=== PATIENT | female | born 1985 ===

== ENCOUNTER 2016-10-21 09:14 | Emergency (ER) | payer MEDICAID, OTHER ==
[2016-10-21 09:14] VITALS: BMI 28.8
[2016-10-21 09:19] VITALS: BP 118/80; RESP 18; TEMP 97.5
[2016-10-21 09:58] VITALS: PULSE 78; O2SAT 98
--- NOTE | 2016-10-21 12:14 | C.PDOC ---
History Of Present Illness The patient, a 31 y/o female, presents to the ED for evaluation of a headache which occurred yesterday. Patient also states she has mild tenderness under her left eye. Patient did not take any medication for her symptoms yesterday. Patient denies headache currently in the ED as well as fever, chills, vision changes, injury/trauma. Chief Complaint (Nursing): Headache History Per: Patient History/Exam Limitations: no limitations Onset/Duration Of Symptoms: Hrs Current Symptoms Are (Timing): Gone Quality: Aching Preceeding Symptoms: denies: Visual Disturbances Associated Symptoms: denies: Photophobia, Blurred Vision Additional History Per: Patient Past Medical History Reviewed: Historical Data, Nursing Documentation, Vital Signs Vital Signs: Last Vital Signs Temp 97.5 F L 10/21/16 09:18 Pulse 78 10/21/16 09:58 Resp 18 10/21/16 09:58 BP 118/80 10/21/16 09:18 Pulse Ox 98 10/21/16 12:16 - Medical History PMH: HTN (Preeclampsia) Surgical History: No Surg Hx ( ) Family History: States: Unknown Family Hx - Social History Hx Tobacco Use: No Hx Alcohol Use: Yes Hx Substance Use: No - Immunization History Hx Tetanus Toxoid Vaccination: No Hx Influenza Vaccination: No Hx Pneumococcal Vaccination: No Review Of Systems Except As Marked, All Systems Reviewed And Found Negative. Constitutional: Negative for: Fever, Chills Eyes: Negative for: Vision Change Neurological: Positive for: Headache Physical Exam - Physical Exam Appears: Non-toxic, No Acute Distress Skin: Normal Color, Warm, Dry Head: Atraumatic, Normacephalic Eye(s): bilateral: Normal Inspection, PERRL, EOMI Oral Mucosa: Moist Neck: Normal ROM, Supple Chest: Symmetrical, No Deformity, No Tenderness Cardiovascular: Rhythm Regular, No Murmur Respiratory: Normal Breath Sounds, No Rales, No Rhonchi, No Wheezing Back: Normal Inspection Extremity: Normal ROM, Capillary Refill (less than 2 seconds ) Neurological/Psych: Oriented x3, Normal Speech, Normal Cognition Gait: Steady ED Course And Treatment O2 Sat by Pulse Oximetry: 98 (on RA) Pulse Ox Interpretation: Normal Medical Decision Making Medical Decision Making: Progress Notes: On reassessment, patient is resting comfortably, showing no signs of distress, and is stable for duscharge. Patient is advised to follow up with her PMD within a timely manner for further evaluation. Disposition - Disposition Referrals: [facility] [Outside] [facility] [Outside] Disposition: HOME/ ROUTINE Disposition Time: 09:50 Condition: GOOD Additional Instructions: Thank you for letting us take care of you today. Your provider was Dr. Alfredo. You were treated for sinus swelling. The emergency medical care you received today was directed at your acute symptoms. If you were prescribed any medication, please fill it and take as directed. It may take several days for your symptoms to resolve. Return to the Emergency Department if your symptoms worsen, do not improve, or if you have any other problems. Please contact your doctor or call one of the physicians/clinics you have been referred to that are listed on the Patient Visit Information form that is included in your discharge packet. Bring any paperwork you were given at discharge with you along with any medications you are taking to your follow up visit. Our treatment cannot replace ongoing medical care by a primary care provider (PCP) outside of the emergency department. Thank you for allowing the [facility] team to be part of your care today. Follow up in the clinic in 3-5 days to be re-evaluated. Prescriptions: Cetirizine HCl/Pseudoephedrine [Zyrtec-D Tablet] 1 each PO DAILY #10 tab.er.[id number] Instructions: Sinusitis (ED) Forms: Gen Discharge Inst Irish, Work Excuse Print Language: ICELANDIC - Clinical Impression Clinical Impression: Sinusitis - Scribe Statement The provider has reviewed the documentation as recorded by the Scribe (Patience Traore) Provider Attestation: All medical record entries made by the Kellyibe were at my direction and personally dictated by me. I have reviewed the chart and agree that the record accurately reflects my personal performance of the history, physical exam, medical decision making, and the department course for this patient. I have also personally directed, reviewed, and agree with the discharge instructions and disposition.
== END 2016-10-21 09:59 | disposition home or self-care (01) ==
LOC: C.ER 09:14
DX: J32.9 Chronic sinusitis, unspecified (principal)

== ENCOUNTER 2016-11-18 09:16 | Emergency (ER) | payer MEDICAID, OTHER ==
[2016-11-18 09:16] VITALS: BMI 28.8
[2016-11-18 09:19] VITALS: RESP 18; TEMP 97.8; O2SAT 100
[2016-11-18] MEDS ORDERED: Sodium Chloride 0.9% 1,000 ML IV ONE (09:46)
--- NOTE | 2016-11-18 09:50 | C.PDOC ---
History Of Present Illness 31-year-old female presents to the emergency department with complaints of six episodes of non-bloody diarrhea with white mucus since last night. Patient notes associated abdominal pain that is primarily epigastric. She denies fever , vomiting, vaginal bleeding, hematuria/dysuria, sick contacts, unusual food intake, recent antibiotic use. Time Seen by Provider: 11/18/16 09:24 Chief Complaint (Nursing): Abdominal Pain History Per: Patient History/Exam Limitations: no limitations Onset/Duration Of Symptoms: Days Current Symptoms Are (Timing): Still Present Severity: Mild Location Of Pain/Discomfort: Epigastric Past Medical History Reviewed: Historical Data, Nursing Documentation, Vital Signs Vital Signs: Last Vital Signs Temp 97.8 F 11/18/16 09:19 Pulse 64 11/18/16 11:43 Resp 18 11/18/16 11:43 BP 104/70 11/18/16 11:43 Pulse Ox 100 11/18/16 18:04 - Medical History PMH: HTN (Preeclampsia) Family History: States: No Known Family Hx - Social History Hx Tobacco Use: No Hx Alcohol Use: Yes Hx Substance Use: No - Immunization History Hx Tetanus Toxoid Vaccination: No Hx Influenza Vaccination: No Hx Pneumococcal Vaccination: No Review Of Systems Except As Marked, All Systems Reviewed And Found Negative. Constitutional: Negative for: Fever Cardiovascular: Negative for: Chest Pain, Palpitations Respiratory: Negative for: Cough, Shortness of Breath Gastrointestinal: Positive for: Nausea, Abdominal Pain, Diarrhea. Negative for : Vomiting Genitourinary: Negative for: Dysuria, Hematuria, Vaginal Discharge, Vaginal Bleeding Musculoskeletal: Negative for: Back Pain Skin: Negative for: Rash Neurological: Negative for: Headache, Dizziness Physical Exam - Physical Exam Appears: Well, Non-toxic, No Acute Distress Skin: Warm, Dry, No Rash Eye(s): bilateral: Normal Inspection Oral Mucosa: Moist Cardiovascular: Rhythm Regular Respiratory: Normal Breath Sounds, No Rales, No Rhonchi, No Wheezing Gastrointestinal/Abdominal: Bowel Sounds, Soft, Tenderness (Mild, epigastric TTP ), No Guarding, No Rebound, Other ((-)[place], (-)[place] ) Back: Normal Inspection, No CVA Tenderness Extremity: Normal ROM Neurological/Psych: Oriented x3 ED Course And Treatment - Laboratory Results Result Diagrams: 11/18/16 10:06 05/16/17 10:06 O2 Sat by Pulse Oximetry: 100 (RA) Pulse Ox Interpretation: Normal Progress Note: Blood work, UA/HCG ordered and reviewed. Patient given IV NS bolus, IV pepcid, IV zofran. Reevaluation Time: 11:35 Reassessment Condition: Improved (On reassessment, patient is resting comforrtably and states she is feeling better. On exam, abdomnen is soft and nontender. Blood work, UA, Upreg unremarkable. Symptoms likely due to viral gastroenteritis. Patient given Rxs for Bentyl and Zofran, and was instructed to drink plenty of clear fluids and follow up with PMD/clinic in 1-2 days. She understands she should return to ED if symptoms worsen.) Disposition Counseled Patient/Family Regarding: Studies Performed, Diagnosis, Need For Followup, Rx Given - Disposition Referrals: [facility] [Outside] Disposition: HOME/ ROUTINE Disposition Time: 11:35 Condition: STABLE Additional Instructions: FOLLOW UP WITH YOUR DOCTOR/CLINIC IN 1-2 DAYS DRINK PLENTY OF CLEAR FLUIDS USE MEDICATIONS NEEDED RETURN TO EMERGENCY ROOM IF SYMPTOMS WORSEN SEGUIMIENTO CON NGO DOCTOR / CLNICA EN 1-2 ALFONSO BEBIDA DE FLUIDOS SUPRIYA USE LOS MEDICAMENTOS QUE VIDA NECESARIOS DEVUELVA A LA JORGE LUIS DE EMERGENCIA SI LOS SNTOMAS EMPEORARAN Prescriptions: Dicyclomine [Bentyl] 20 mg PO Q6 PRN #12 tab PRN Reason: ABDOMINAL CRAMPING Ondansetron [Zofran Odt] 4 mg PO Q8 PRN #10 odt PRN Reason: Nausea/Vomiting Instructions: Acute Diarrhea (ED) Forms: Work Excuse Print Language: COLOMBIAN - POA Present On Arrival: None - Clinical Impression Clinical Impression: Nausea, Diarrhea - Scribe Statement The provider has reviewed the documentation as recorded by the Scribrohini Brower All medical record entries made by the Scribe were at my direction and personally dictated by me. I have reviewed the chart and agree that the record accurately reflects my personal performance of the history, physical exam, medical decision making, and the department course for this patient. I have also personally directed, reviewed, and agree with the discharge instructions and disposition.
[2016-11-18] MEDS ORDERED: Sodium Chloride 0.9% 1,000 ML ONE (10:06)
[2016-11-18 10:21] LABS: BASO % 0.5 % (0.0-2.0); EOS # 0.1 K/uL (0.0-0.7); EOS % 2.2 % (0.0-4.0); HEMATOCRIT 38.4 % (34.0-47.0); LYMPH # 1.3 K/uL (1.0-4.3); LYMPH % 31.9 % (20.0-40.0); MEAN CELL VOLUME 92.6 fL (81.0-99.0); MEAN CORPUSCULAR HEMOGLOBIN 30.2 pg (27.0-31.0); MEAN CORPUSCULAR HGB CONC 32.6 g/dL (33.0-37.0); MONO # 0.3 K/uL (0.0-0.8); MONO % 8.5 % (0.0-10.0); RED CELL DISTRIBUTION WIDTH 13.1 % (11.5-14.5)
[2016-11-18 10:24] LABS: CHLORIDE 99 mmol/L (98-107); POTASSIUM 3.9 mmol/L (3.6-5.2); SODIUM 136 mmol/L (132-148)
[2016-11-18 10:26] LABS: ALB/GLOB RATIO 1.6 (1.0-2.1); ALKALINE PHOSPHATASE 67 U/L (38-126); AST/SGOT 22 U/L (14-36); BILIRUBIN,TOTAL 0.5 mg/dL (0.2-1.3); CARBON DIOXIDE 29 mmol/L (22-30); GFR AFRICAN-AMERICAN > 60; TOTAL PROTEIN 6.8 g/dL (6.3-8.3)
[2016-11-18 10:27] LABS: ALT/SGPT 34 U/L (9-52); BLOOD UREA NITROGEN 13 mg/dL (7-17); CALCIUM 8.4 mg/dl (8.6-10.4); GLUCOSE,RANDOM 88 mg/dL (65-105)
[2016-11-18 10:36] LABS: RBC URINE 1 /hpf (0-3); URINE BILIRUBIN NEGATIVE (NEGATIVE); URINE BLOOD NEGATIVE (NEGATIVE); URINE COLOR Yellow (YELLOW); URINE GLUCOSE (UA) NORMAL (Normal); URINE KETONE NEGATIVE (NEGATIVE); URINE LEUKOCYTE ESTERASE NEG Leu/uL (Negative); URINE PROTEIN NEGATIVE (NEGATIVE); URINE UROBILINOGEN NORMAL mg/dL (0.2-1.0); WBC URINE < 1 /hpf (0-5)
--- NOTE | 2016-11-18 11:43 | RAD ---
PROCEDURE: Radiographs of the chest and abdomen (obstructive series) HISTORY: n/v, abd distension COMPARISON: CT of the abdomen and pelvis performed 03/13/16 FINDINGS: CHEST: The cardiomediastinal silhouette appears within normal limits. No focal consolidation, significant pleural effusion, or definite pneumothorax identified.Please note that chest x-ray has limited sensitivity for the detection of pulmonary masses. ABDOMEN AND PELVIS: Nonobstructive bowel gas pattern. No definite free air. Moderate constipation. No acute osseous abnormality is detected. IMPRESSION: Moderate constipation.
[2016-11-18 11:44] VITALS: BP 104/70; PULSE 64
== END 2016-11-18 11:45 | disposition home or self-care (01) ==
LOC: C.ER 09:16
DX: R19.7 Diarrhea, unspecified (principal); R11.0 Nausea
CPT/HCPCS: 74022; 80053; 81001; 83690; 84703; 85025; 96361; 96374; 96375; 99284; J2405; J7040

== ENCOUNTER 2017-01-13 11:18 | Emergency (ER) | payer MEDICAID ==
[2017-01-13 11:19] VITALS: BMI 28.8
[2017-01-13 11:23] VITALS: RESP 16; TEMP 97.7; O2SAT 100
--- NOTE | 2017-01-13 12:29 | C.PDOC ---
History Of Present Illness 31 yr old with PMHx of hypotension, presents to the ER stating today she felt like her pressure was low and noticed her lips were pale and had body aches. Patient denies fever, chest pain, SOB, nausea, vomiting, headache, vision changes, weakness or numbness. Time Seen by Provider: 01/13/17 11:48 Chief Complaint (Nursing): Medical Clearance History Per: Patient History/Exam Limitations: no limitations Onset/Duration Of Symptoms: Sudden Onset (Today) Current Symptoms Are (Timing): Still Present Past Medical History Reviewed: Historical Data, Nursing Documentation, Vital Signs Vital Signs: Last Vital Signs Temp 97.7 F 01/13/17 12:53 Pulse 92 H 01/13/17 12:53 Resp 16 01/13/17 12:53 BP 116/78 01/13/17 12:53 Pulse Ox 100 01/13/17 12:53 - Medical History PMH: HTN (Preeclampsia) Family History: States: No Known Family Hx - Social History Hx Tobacco Use: No Hx Alcohol Use: Yes Hx Substance Use: No - Immunization History Hx Tetanus Toxoid Vaccination: No Hx Influenza Vaccination: No Hx Pneumococcal Vaccination: No Review Of Systems Except As Marked, All Systems Reviewed And Found Negative. Constitutional: Positive for: Other ((+) Low pressure. Body aches. Pale lips. ) . Negative for: Fever Cardiovascular: Negative for: Chest Pain Respiratory: Negative for: Shortness of Breath Gastrointestinal: Negative for: Nausea, Vomiting Neurological: Negative for: Weakness, Numbness, Headache Physical Exam - Physical Exam Appears: Non-toxic, No Acute Distress Skin: Warm, Dry, No Rash Head: Atraumatic, Normacephalic Eye(s): bilateral: Normal Inspection, PERRL, EOMI Oral Mucosa: Moist Throat: No Erythema, No Exudate Neck: Normal ROM, Supple Chest: Symmetrical, No Tenderness Cardiovascular: Rhythm Regular, No Friction Rub, No Murmur Respiratory: Normal Breath Sounds, No Rales, No Rhonchi, No Stridor, No Wheezing Gastrointestinal/Abdominal: Normal Exam, Soft, No Tenderness, No Guarding, No Rebound Back: Normal Inspection, No CVA Tenderness Extremity: Normal ROM, No Tenderness, No Swelling Pulses: Left Radial: Normal, Right Radial: Normal, Left Dorsalis Pedis: Normal, Right Dorsalis Pedis: Normal Neurological/Psych: Oriented x3, Normal Speech, Normal Cranial Nerves, Normal Motor, Normal Sensation Gait: Steady ED Course And Treatment O2 Sat by Pulse Oximetry: 100 (on RA) Pulse Ox Interpretation: Normal Medical Decision Making Medical Decision Making: PLAN: * HCG * Urinalysis On re-exam, the patient reports improvement of symptoms. Ambulatory in the ED with steady gait. Abdomen is soft, non-tender and tolerating PO well. Lungs are CTA and heart is RRR. Disposition - Disposition Referrals: [facility] [Outside] Disposition: HOME/ ROUTINE Disposition Time: 12:49 Condition: GOOD Additional Instructions: Follow up with the medical doctor within 1-2 days. Return if worsened. 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 - Scribe Statement The provider has reviewed the documentation as recorded by the Scribe Pearl Escobar All medical record entries made by the Scribe were at my direction and personally dictated by me. I have reviewed the chart and agree that the record accurately reflects my personal performance of the history, physical exam, medical decision making, and the department course for this patient. I have also personally directed, reviewed, and agree with the discharge instructions and disposition.
[2017-01-13 12:36] LABS: HCG,QUALITATIVE URINE POSITIVE (NEGATIVE)
[2017-01-13 12:43] LABS: SQUAMOUS EPITHIAL 1 /hpf (0-5); URINE BILIRUBIN NEGATIVE (NEGATIVE); URINE BLOOD NEGATIVE (NEGATIVE); URINE CLARITY Clear (Clear); URINE COLOR Yellow (YELLOW); URINE GLUCOSE (UA) NORMAL (Normal); URINE LEUKOCYTE ESTERASE NEG Leu/uL (Negative); URINE NITRATE NEGATIVE (NEGATIVE); URINE PROTEIN NEGATIVE (NEGATIVE); URINE UROBILINOGEN NORMAL mg/dL (0.2-1.0)
[2017-01-13 12:54] VITALS: BP 116/78; PULSE 92
== END 2017-01-13 12:59 | disposition home or self-care (01) ==
LOC: C.ER 11:18
DX: O26.891 Other specified pregnancy related conditions, first trimester (principal); R42 Dizziness and giddiness; Z3A.00 Weeks of gestation of pregnancy not specified

== ENCOUNTER 2017-01-14 09:23 | Emergency (ER) | payer MEDICAID ==
[2017-01-14 09:27] VITALS: BMI 27.4
[2017-01-14 09:28] VITALS: RESP 18; O2SAT 100
[2017-01-14 10:09] LABS: BASO % 0.4 % (0.0-2.0); EOS # 0.1 K/uL (0.0-0.7); EOS % 1.2 % (0.0-4.0); HEMOGLOBIN 13.5 g/dL (11.0-16.0); LYMPH # 1.4 K/uL (1.0-4.3); MEAN CELL VOLUME 91.6 fL (81.0-99.0); MEAN CORPUSCULAR HGB CONC 32.8 g/dL (33.0-37.0); MONO # 0.4 K/uL (0.0-0.8); MONO % 7.4 % (0.0-10.0); NEUT # 3.8 K/uL (1.8-7.0); RBC 4.51 Mil/uL (3.80-5.20); RED CELL DISTRIBUTION WIDTH 12.8 % (11.5-14.5); WHITE BLOOD COUNT 5.7 K/uL (4.8-10.8)
--- NOTE | 2017-01-14 10:13 | C.PDOC ---
History Of Present Illness 31 y/o female presents to ED with complaints of pelvic pain with radiation to back. Patient was seen at ED yesterday for similar symptoms and was told she was . Patient states after being discharged yesterday symptoms continued and went to [facility] for evaluation. Patient had an ultrasound and blood work at [facility] and was discharged home. Patient reports symptoms have not improved since then and patient decided to come back to ED for evaluation. Patient denies fever, chills, n/v/d or any other complaints at this time. LMP 12/2016 Time Seen by Provider: 01/14/17 09:32 Chief Complaint (Nursing): Back Pain History Per: Patient History/Exam Limitations: no limitations Onset/Duration Of Symptoms: Days Quality Of Discomfort: Cramping Previous Symptoms: Back Pain Past Medical History Reviewed: Historical Data, Nursing Documentation, Vital Signs Vital Signs: Last Vital Signs Temp 98.2 F 01/14/17 11:30 Pulse 82 01/14/17 11:30 Resp 18 01/14/17 11:30 BP 119/80 01/14/17 11:30 Pulse Ox 100 01/14/17 11:30 - Medical History PMH: HTN (Preeclampsia) Surgical History: Family History: States: No Known Family Hx - Social History Hx Tobacco Use: No Hx Alcohol Use: No Hx Substance Use: No - Immunization History Hx Tetanus Toxoid Vaccination: No Hx Influenza Vaccination: No Hx Pneumococcal Vaccination: No Review Of Systems Except As Marked, All Systems Reviewed And Found Negative. Constitutional: Negative for: Fever, Chills Gastrointestinal: Negative for: Nausea, Vomiting, Diarrhea Genitourinary: Positive for: Pelvic Pain. Negative for: Dysuria Musculoskeletal: Positive for: Back Pain Physical Exam - Physical Exam Appears: Non-toxic, No Acute Distress Skin: Normal Color, Warm Head: Atraumatic, Normacephalic Oral Mucosa: Moist Cardiovascular: Rhythm Regular, No Murmur Respiratory: Normal Breath Sounds, No Rales, No Rhonchi, No Wheezing Gastrointestinal/Abdominal: Soft, No Tenderness, No Guarding, No Rebound Extremity: Normal ROM, No Pedal Edema Neurological/Psych: Oriented x3 ED Course And Treatment - Laboratory Results Result Diagrams: 01/14/17 10:00 01/14/17 10:00 O2 Sat by Pulse Oximetry: 100 (RA) Pulse Ox Interpretation: Normal Medical Decision Making Medical Decision Making: Patient was seen at [facility] on 01/13/17 and had an ultrasound and blood work. Ultrasound Findings: Tiny gestational sac without yolk sac or pole. Disposition Counseled Patient/Family Regarding: Studies Performed, Diagnosis, Need For Followup, Rx Given - Disposition Referrals: [facility] [Outside] [facility] [Outside] [facility] [Outside] Disposition: HOME/ ROUTINE Disposition Time: 11:30 Condition: STABLE Additional Instructions: Return to ED if any increase symptoms Instructions: (ED) Forms: Work Excuse Print Language: UZBEK - POA Present On Arrival: None - Clinical Impression Clinical Impression: Low back pain, - Scribe Statement The provider has reviewed the documentation as recorded by the Scribrohini Castellanos All medical record entries made by the Kellyibrohini were at my direction and personally dictated by me. I have reviewed the chart and agree that the record accurately reflects my personal performance of the history, physical exam, medical decision making, and the department course for this patient. I have also personally directed, reviewed, and agree with the discharge instructions and disposition.
[2017-01-14 10:21] LABS: HCG,QUALITATIVE URINE POSITIVE (NEGATIVE)
[2017-01-14 10:37] LABS: SQUAMOUS EPITHIAL 1 /hpf (0-5); URINE BILIRUBIN NEGATIVE (NEGATIVE); URINE BLOOD NEGATIVE (NEGATIVE); URINE CLARITY Clear (Clear); URINE COLOR Yellow (YELLOW); URINE GLUCOSE (UA) NORMAL (Normal); URINE LEUKOCYTE ESTERASE NEG Leu/uL (Negative); URINE NITRATE NEGATIVE (NEGATIVE); URINE PROTEIN NEGATIVE (NEGATIVE); URINE UROBILINOGEN NORMAL mg/dL (0.2-1.0)
[2017-01-14 11:01] LABS: ALBUMIN 4.2 g/dL (3.5-5.0)
[2017-01-14 11:04] LABS: GFR AFRICAN-AMERICAN > 60; GFR NON-AFRICAN AMERICAN > 60
[2017-01-14 11:05] LABS: ALB/GLOB RATIO 1.3 (1.0-2.1); ALT/SGPT 30 U/L (9-52); AST/SGOT 26 U/L (14-36); BLOOD UREA NITROGEN 11 mg/dL (7-17); CALCIUM 9.2 mg/dl (8.6-10.4)
[2017-01-14 11:35] VITALS: BP 119/80; PULSE 82; TEMP 98.2
== END 2017-01-14 11:46 | disposition home or self-care (01) ==
LOC: C.ER 09:23
DX: O26.899 Other specified pregnancy related conditions, unspecified trimester (principal); M54.5 Low back pain; Z3A.00 Weeks of gestation of pregnancy not specified

== ENCOUNTER 2017-01-22 10:41 | Emergency (ER) | payer MEDICAID, OTHER ==
[2017-01-22 10:42] VITALS: BMI 27.4
[2017-01-22 10:44] VITALS: TEMP 98.9
[2017-01-22 11:18] LABS: SQUAMOUS EPITHIAL 1 /hpf (0-5); URINE BILIRUBIN NEGATIVE (NEGATIVE); URINE BLOOD NEGATIVE (NEGATIVE); URINE CLARITY Clear (Clear); URINE COLOR Straw (YELLOW); URINE GLUCOSE (UA) NORMAL (Normal); URINE LEUKOCYTE ESTERASE NEG Leu/uL (Negative); URINE NITRATE NEGATIVE (NEGATIVE); URINE PROTEIN NEGATIVE (NEGATIVE); URINE UROBILINOGEN NORMAL mg/dL (0.2-1.0)
[2017-01-22 11:19] LABS: HCG,QUALITATIVE URINE POSITIVE (NEGATIVE)
--- NOTE | 2017-01-22 11:41 | C.PDOC ---
History Of Present Illness Patient is a 31 y/o female, 4 weeks , presents to the ED for evaluation of constipation for the last 10 days. Patient reports fullness, and bloating to upper abdomen, but denies any abdominal pain. Patient reports being seen by OBGYN 2 days ago for similar symptoms and was advised to increase fluids, and fiber intake. Patient notes increasing fluids, and fiber intake without any improvement. Otherwise, denies any nausea, vomiting, urinary symptoms, vaginal bleeding, vaginal discharge, fever, or chills. Time Seen by Provider: 01/22/17 10:52 Chief Complaint (Nursing): Abdominal Pain History Per: Patient History/Exam Limitations: no limitations Onset/Duration Of Symptoms: Days (10) Current Symptoms Are (Timing): Still Present Location Of Pain/Discomfort: Other (upper abdomen) Quality Of Discomfort: Other (bloated) Associated Symptoms: Constipation. denies: Fever, Chills, Nausea, Vomiting, Diarrhea, Loss Of Appetite, Back Pain, Chest Pain, Urinary Symptoms Exacerbating Factors: None Alleviating Factors: None Recent travel outside of the [place]: No Additional History Per: Patient Abnormal Vaginal Bleeding: No Past Medical History Reviewed: Historical Data, Nursing Documentation, Vital Signs Vital Signs: Last Vital Signs Temp 98.9 F 01/22/17 10:43 Pulse 82 01/22/17 11:53 Resp 17 01/22/17 11:53 BP 117/78 01/22/17 11:53 Pulse Ox 99 01/22/17 12:04 - Medical History PMH: HTN (Preeclampsia) Surgical History: Family History: States: Unknown Family Hx - Social History Hx Tobacco Use: No Hx Alcohol Use: No Hx Substance Use: No - Immunization History Hx Tetanus Toxoid Vaccination: No Hx Influenza Vaccination: No Hx Pneumococcal Vaccination: No Review Of Systems Except As Marked, All Systems Reviewed And Found Negative. Constitutional: Negative for: Fever, Chills Gastrointestinal: Positive for: Constipation, Other (upper abdomen fullness). Negative for: Nausea, Vomiting, Abdominal Pain, Diarrhea Genitourinary: Negative for: Dysuria, Frequency, Incontinence, Hematuria, Vaginal Discharge, Vaginal Bleeding, Pelvic Pain Musculoskeletal: Negative for: Back Pain Physical Exam - Physical Exam Appears: Well, Non-toxic, No Acute Distress Skin: Normal Color, Warm, Dry Head: Atraumatic, Normacephalic Eye(s): bilateral: Normal Inspection Oral Mucosa: Moist Neck: Normal, Normal ROM, Supple Chest: Symmetrical Cardiovascular: Rhythm Regular, No Murmur Respiratory: Normal Breath Sounds, No Decreased Breath Sounds, No Accessory Muscle Use, No Rales, No Rhonchi, No Stridor, No Wheezing Gastrointestinal/Abdominal: Normal Exam, Bowel Sounds (normal), Soft, No Tenderness, No Organomegaly, No Mass, No Distention, No Guarding, No Rebound Rectal: Rectal Tone, No Hemorrhoids, No Mass, No Tenderness, No Other (no stool impaction, Patrician, femal tech was present during the entire exam) Back: Normal Inspection, No CVA Tenderness, No Vertebral Tenderness, No Paraspinal Tenderness Extremity: Normal ROM, No Tenderness, No Deformity, No Swelling Extremity: Bilateral: Atraumatic, Normal ROM Neurological/Psych: Oriented x3, Normal Speech, Normal Cognition, Normal Cranial Nerves, Normal Motor ED Course And Treatment O2 Sat by Pulse Oximetry: 99 (on RA) Pulse Ox Interpretation: Normal Medical Decision Making Medical Decision Makin31 y/o female, 4 weeks , presents to the ED for evaluation of constipation for the last 10 days, despite increasing her intake of water and fiber rich foods. Plan: * Lactulose * Urinalysis Progress note: UA (-). Patient was advised to continue increase fluid and fiber intake, and was advised to increase physical activity, such as walking for 30 minutes a day. Patient will be discharged home with prescriptions of Lactulose, and is instructed to follow up with OBGYN in 1-2 days. Patient states that she feels comfortable going home and verbalize understanding of discharge instructions. Disposition - Disposition Disposition: HOME/ ROUTINE Disposition Time: 11:38 Condition: STABLE Additional Instructions: Follow up with your OB doctor in 2 days without fail for re-evaluation. Take medication as prescribed. Increase intake of water, fiber rich foods and physical activity. Return to the ER at any time for any new or worsening symptoms. 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 - Scribe Statement The provider has reviewed the documentation as recorded by the Rosamaria Traore All medical record entries made by the Rosamaria were at my direction and personally dictated by me. I have reviewed the chart and agree that the record accurately reflects my personal performance of the history, physical exam, medical decision making, and the department course for this patient. I have also personally directed, reviewed, and agree with the discharge instructions and disposition.
[2017-01-22 11:54] VITALS: BP 117/78; PULSE 82; RESP 17
[2017-01-22 11:58] VITALS: O2SAT 99
== END 2017-01-22 11:55 | disposition home or self-care (01) ==
LOC: C.ER 10:41
DX: K59.00 Constipation, unspecified (principal)

== ENCOUNTER 2017-02-18 17:05 | Emergency (ER) | payer MEDICAID ==
[2017-02-18 17:05] VITALS: BMI 27.4
[2017-02-18 17:21] VITALS: RESP 16; O2SAT 100
[2017-02-18] MEDS ORDERED: Sodium Chloride 0.9% 1,000 ML IV ONE ×2 (17:57→19:14)
--- NOTE | 2017-02-18 18:08 | C.PDOC ---
History Of Present Illness 32 YO FEMALE C/O LLQ ABDOMINAL PAIN. ALSO REPORTS PELVIC PAIN THAT GOES TO HER BACK. WORSE WITH SITTING AND MOVEMENT. ALSO C/O BURNING ON URINATION. STOPPED TAKING CONSTIPATION MEDS 1 WEEK AGO, REPORTS HAVING SMALL, SOFT BM'S DAILY. DENIES VAGINAL BLEEDING, VOMITING, DIARRHEA. PRIOR RECORDS REVIEWED: PATIENT SEEN FOR SIMILAR SYMPTOMS ON 01/13/17 AND 01/14/17 , WITH ULTRASOUND SHOWING "GESTATIONAL SAC W/O YOLK SAC OR POLE". PT ALSO EVALUATED IN ER AND DIAGNOSED WITH CONSTIPATION ON 01/22/17. Time Seen by Provider: 02/18/17 17:49 Chief Complaint (Nursing): Abdominal Pain History Per: Patient History/Exam Limitations: no limitations Onset/Duration Of Symptoms: Days Current Symptoms Are (Timing): Still Present Location Of Pain/Discomfort: LLQ Radiation Of Pain To:: None Quality Of Discomfort: "Pain" Associated Symptoms: denies: Fever, Chills, Vomiting, Urinary Symptoms Recent travel outside of the [place]: No Abnormal Vaginal Bleeding: No Past Medical History Reviewed: Historical Data, Nursing Documentation, Vital Signs Vital Signs: Last Vital Signs Temp 98.6 F 02/18/17 17:16 Pulse 87 02/18/17 17:16 Resp 16 02/18/17 17:16 BP 112/68 02/18/17 17:16 Pulse Ox 100 02/18/17 18:18 - Medical History PMH: HTN (Preeclampsia) Surgical History: Family History: States: Unknown Family Hx - Social History Hx Tobacco Use: No Hx Alcohol Use: No Hx Substance Use: No - Immunization History Hx Tetanus Toxoid Vaccination: No Hx Influenza Vaccination: No Hx Pneumococcal Vaccination: No Review Of Systems Except As Marked, All Systems Reviewed And Found Negative. Constitutional: Negative for: Fever, Chills Cardiovascular: Negative for: Chest Pain Respiratory: Negative for: Cough, Shortness of Breath, Wheezing Gastrointestinal: Positive for: Abdominal Pain. Negative for: Vomiting, Diarrhea Genitourinary: Negative for: Vaginal Bleeding Skin: Negative for: Rash Physical Exam - Physical Exam Appears: Non-toxic, No Acute Distress Skin: Warm, Dry Head: Atraumatic, Normacephalic Oral Mucosa: Moist Chest: Symmetrical Cardiovascular: Rhythm Regular Respiratory: Normal Breath Sounds, No Rales, No Rhonchi, No Wheezing Gastrointestinal/Abdominal: Soft, No Tenderness, No Guarding, No Rebound Back: Normal Inspection Extremity: Normal ROM, Capillary Refill (< 2 SEC.) Neurological/Psych: Oriented x3, Normal Speech, Normal Cognition ED Course And Treatment - Laboratory Results Result Diagrams: 02/18/17 18:16 02/18/17 18:16 O2 Sat by Pulse Oximetry: 100 (RA) Pulse Ox Interpretation: Normal Progress - Re-Evaluation Re-evaluation Note: 02/18/17 19:[address] CORA NOGUERA LABS, US, DISPO - Data Reviewed Data Reviewed: Lab, Diagnostic imaging, Old records Disposition - Disposition Disposition Time: 19:00 Condition: STABLE Forms: [employer] (Albanian) - Clinical Impression Clinical Impression: Abdominal pain, - Scribe Statement The provider has reviewed the documentation as recorded by the Scribe SM All medical record entries made by the Scribe were at my direction and personally dictated by me. I have reviewed the chart and agree that the record accurately reflects my personal performance of the history, physical exam, medical decision making, and the department course for this patient. I have also personally directed, reviewed, and agree with the discharge instructions and disposition. Physician Patient Turnover Patient Signed Over To: Maral Jackman Handoff Comments: POORNIMA US, LABS, DISPO
[2017-02-18 18:25] LABS: RBC URINE < 1 /hpf (0-3); URINE BILIRUBIN NEGATIVE (NEGATIVE); URINE BLOOD NEGATIVE (NEGATIVE); URINE COLOR Yellow (YELLOW); URINE GLUCOSE (UA) NORMAL (Normal); URINE KETONE NEGATIVE (NEGATIVE); URINE LEUKOCYTE ESTERASE NEG Leu/uL (Negative); URINE PROTEIN NEGATIVE (NEGATIVE); URINE UROBILINOGEN NORMAL mg/dL (0.2-1.0); WBC URINE < 1 /hpf (0-5)
[2017-02-18 18:25] LABS: BASO % 0.6 % (0.0-2.0); EOS # 0.1 K/uL (0.0-0.7); EOS % 0.7 % (0.0-4.0); HEMATOCRIT 36.8 % (34.0-47.0); LYMPH # 1.7 K/uL (1.0-4.3); LYMPH % 20.8 % (20.0-40.0); MEAN CELL VOLUME 92.1 fL (81.0-99.0); MEAN CORPUSCULAR HEMOGLOBIN 30.9 pg (27.0-31.0); MEAN CORPUSCULAR HGB CONC 33.6 g/dL (33.0-37.0); MEAN PLATELET VOLUME 10.1 fL (7.2-11.7); MONO # 0.5 K/uL (0.0-0.8); MONO % 6.6 % (0.0-10.0); RED CELL DISTRIBUTION WIDTH 13.4 % (11.5-14.5)
[2017-02-18 18:34] LABS: CHLORIDE 98 mmol/L (98-107)
[2017-02-18 18:35] LABS: POTASSIUM 3.7 mmol/L (3.6-5.2); SODIUM 133 mmol/L (132-148)
[2017-02-18 18:37] LABS: ALB/GLOB RATIO 1.3 (1.0-2.1); ALKALINE PHOSPHATASE 72 U/L (38-126); AST/SGOT 23 U/L (14-36); BILIRUBIN,TOTAL 0.3 mg/dL (0.2-1.3); BLOOD UREA NITROGEN 14 mg/dL (7-17); CARBON DIOXIDE 27 mmol/L (22-30); GFR AFRICAN-AMERICAN > 60; TOTAL PROTEIN 6.6 g/dL (6.3-8.3)
[2017-02-18 18:38] LABS: ALT/SGPT 33 U/L (9-52); GLUCOSE,RANDOM 86 mg/dL (65-105)
--- NOTE | 2017-02-18 20:02 | US ---
EXAM: US First Trimester, Transabdominal EXAM DATE/TIME: Exam ordered 02/18/2017 5:58 PM CLINICAL HISTORY: 32 years old, female; Pain; complicated by abdominal or pelvic pain; Left lower quadrant; First trimester; Gestational age or lmp: 6-17-17; ; Additional info: Pelvic pain RO ectopic vs demise TECHNIQUE: Real-time transabdominal obstetrical ultrasound of the maternal pelvis and a first trimester with image documentation. COMPARISON: No relevant prior studies available. FINDINGS: Gestation: There is a single intrauterine gestational sac measuring 3.76 x 2.6 x 5.05 cm for a mean sac diameter 3.82 cm for a menstrual age of 9 weeks and 0 days. There is a pole with a crown-rump length measurement of 2.28 cm for a menstrual age of 9 weeks and 0 days. Cardiac activity is noted a rate of 168 beats per minute Placenta/amniotic fluid: A small subchorionic fluid collection is noted measuring 1.4 x 1 x 2.1 cm. The fluid collection is noted anterior and inferior to the gestational sac. Uterus/cervix: The uterus measures 11.6 x 6.3 x 8.8 cm. The cervix measures 3.1 cm in length. No myometrial mass. Ovaries: The right ovary measures 3.1 x 1.7 x 3 cm. Blood flow is demonstrated in the right ovary on color Doppler examination. The left ovary measures a 2.9 x 2 x 2.2 cm. The post demonstrated in the left auricle color Doppler and pulse Doppler examination. No mass. Free fluid: No free fluid. IMPRESSION: 1. Single live intrauterine with an estimated menstrual age of 9 weeks and 0 days plus or -0 weeks and 4 days. Expected date of confinement 09/23/2017. 2. Small subchorionic fluid collection as described above
[2017-02-18 21:16] VITALS: BP 113/77; PULSE 72; TEMP 97.6
== END 2017-02-18 21:18 | disposition home or self-care (01) ==
LOC: C.ER 17:05
DX: O26.891 Other specified pregnancy related conditions, first trimester (principal); R10.2 Pelvic and perineal pain; Z3A.09 9 weeks gestation of pregnancy
CPT/HCPCS: 76801; 80053; 81001; 84702; 84703; 85025; 96360; 96361; 99285; J7040

== ENCOUNTER 2017-04-08 21:04 | Emergency (ER) | payer MEDICAID, OTHER ==
[2017-04-08 21:05] VITALS: BMI 27.4
--- NOTE | 2017-04-08 23:16 | C.PDOC ---
History Of Present Illness Patient is a 32 y/o female who presents to the ED 16 weeks with a complaint of bilateral bipedal edema. Patient notes to have experienced pre- eclampsia with prior pregnancies, but denies any similar symptoms with this term. Patient denies any pain, but admits to slight burning sensations in the thighs and lower abdomen. Denies any trouble passing urine, headache, or visual disturbances. No other complaints at this time. Time Seen by Provider: 04/08/17 22:15 Chief Complaint (Nursing): Lower Extremity Problem/Injury History Per: Patient History/Exam Limitations: no limitations Onset/Duration Of Symptoms: Days (symptoms began yesterday) Current Symptoms Are (Timing): Still Present Recent travel outside of the [place]: No Past Medical History Reviewed: Historical Data, Nursing Documentation, Vital Signs Vital Signs: Last Vital Signs Temp 98 F 04/08/17 23:31 Pulse 78 04/08/17 23:31 Resp 20 04/08/17 23:31 BP 97/60 L 04/08/17 23:31 Pulse Ox 97 04/08/17 23:31 - Medical History PMH: HTN (Preeclampsia) Surgical History: No Surg Hx, Family History: States: Unknown Family Hx - Social History Hx Tobacco Use: No Hx Alcohol Use: No Hx Substance Use: No - Immunization History Hx Tetanus Toxoid Vaccination: No Hx Influenza Vaccination: Yes Hx Pneumococcal Vaccination: No Review Of Systems Eyes: Negative for: Vision Change Cardiovascular: Negative for: Chest Pain Respiratory: Negative for: Shortness of Breath Gastrointestinal: Negative for: Nausea, Vomiting Genitourinary: Negative for: Dysuria Musculoskeletal: Positive for: Leg Pain (burning sensation in bilateral thigh area and lower abdomen) Neurological: Negative for: Headache Physical Exam - Physical Exam Appears: Well, Non-toxic, No Acute Distress Skin: Normal Color, Warm, Dry Head: Atraumatic Oral Mucosa: Moist Chest: Symmetrical Cardiovascular: Rhythm Regular, No Murmur Respiratory: Normal Breath Sounds, No Rales, No Rhonchi, No Wheezing Gastrointestinal/Abdominal: Normal Exam (gravid abdomen) Extremity: Pedal Edema (mild bilaterally) Neurological/Psych: Oriented x3, Normal Speech, Normal Cognition ED Course And Treatment - Laboratory Results Result Diagrams: 04/08/17 23:26 04/08/17 23:26 Lab Interpretation: Normal O2 Sat by Pulse Oximetry: 100 (room air) Pulse Ox Interpretation: Normal Progress Note: Blood work and UA ordered. Reevaluation Time: 00:37 Reassessment Condition: Improved (Legs slightly less swollen with elevation.) Disposition Counseled Patient/Family Regarding: Studies Performed, Diagnosis, Need For Followup - Disposition Referrals: [facility] [Outside] Disposition: HOME/ ROUTINE Disposition Time: 00:37 Condition: IMPROVED Instructions: Leg Edema (ED) Forms: [employer] (Czech) Print Language: UPPER SORBIAN - Clinical Impression Clinical Impression: , Peripheral edema - Scribe Statement The provider has reviewed the documentation as recorded by the Scribe Lis Malone All medical record entries made by the Scribe were at my direction and personally dictated by me. I have reviewed the chart and agree that the record accurately reflects my personal performance of the history, physical exam, medical decision making, and the department course for this patient. I have also personally directed, reviewed, and agree with the discharge instructions and disposition.
[2017-04-08 23:29] LABS: BASO % 0.4 % (0.0-2.0); EOS # 0.1 K/uL (0.0-0.7); EOS % 2.1 % (0.0-4.0); HEMATOCRIT 33.1 % (34.0-47.0); LYMPH # 1.5 K/uL (1.0-4.3); LYMPH % 21.3 % (20.0-40.0); MEAN CELL VOLUME 92.4 fL (81.0-99.0); MEAN CORPUSCULAR HGB CONC 34.6 g/dL (33.0-37.0); MEAN PLATELET VOLUME 10.4 fL (7.2-11.7); MONO # 0.6 K/uL (0.0-0.8); MONO % 8.4 % (0.0-10.0); RED CELL DISTRIBUTION WIDTH 13.2 % (11.5-14.5); WHITE BLOOD COUNT 6.9 K/uL (4.8-10.8)
[2017-04-08 23:31] LABS: URINE BILIRUBIN NEGATIVE (NEGATIVE); URINE BLOOD NEGATIVE (NEGATIVE); URINE COLOR Colorless (YELLOW); URINE GLUCOSE (UA) NORMAL (Normal); URINE KETONE NEGATIVE (NEGATIVE); URINE LEUKOCYTE ESTERASE NEG Leu/uL (Negative); URINE PROTEIN NEGATIVE (NEGATIVE); URINE UROBILINOGEN NORMAL mg/dL (0.2-1.0); WBC URINE < 1 /hpf (0-5)
[2017-04-08 23:37] LABS: CHLORIDE 101 mmol/L (98-107); POTASSIUM 3.7 mmol/L (3.6-5.2); SODIUM 132 mmol/L (132-148)
[2017-04-08 23:39] LABS: ALB/GLOB RATIO 1.1 (1.0-2.1); ALKALINE PHOSPHATASE 59 U/L (38-126); AST/SGOT 16 U/L (14-36); BILIRUBIN,TOTAL 0.4 mg/dL (0.2-1.3); CARBON DIOXIDE 22 mmol/L (22-30); GFR AFRICAN-AMERICAN > 60; TOTAL PROTEIN 6.2 g/dL (6.3-8.3)
[2017-04-08 23:40] LABS: ALT/SGPT 24 U/L (9-52); BLOOD UREA NITROGEN 11 mg/dL (7-17); CALCIUM 8.4 mg/dl (8.6-10.4); GLUCOSE,RANDOM 80 mg/dL (65-105)
[2017-04-09 01:15] VITALS: BP 114/78; PULSE 80; RESP 18; TEMP 97.7; O2SAT 98
== END 2017-04-09 01:17 | disposition home or self-care (01) ==
LOC: C.ER 21:04
DX: O12.02 Gestational edema, second trimester (principal); Z3A.16 16 weeks gestation of pregnancy

== ENCOUNTER 2017-04-27 10:42 | Emergency (ER) | payer MEDICAID ==
[2017-04-27 10:43] VITALS: BMI 27.4
[2017-04-27 10:47] VITALS: BP 116/77; PULSE 90; RESP 18; TEMP 97.8; O2SAT 99
--- NOTE | 2017-04-27 11:19 | C.PDOC ---
History Of Present Illness 32 year old female presents to the ED for evaluation of cough which began 11 days ago. Patient denies fever and history of asthma. Patient reports positive . COUGH X 11 DAYS. NO FEVER. DENIES HO ASTHMA. +PREG EXAM NARD HEENT NEG LUNGS CTA BL NO W/R/R Time Seen by Provider: 04/27/17 10:56 Chief Complaint (Nursing): Cough, Cold, Congestion History Per: Patient History/Exam Limitations: no limitations Onset/Duration Of Symptoms: Days (11) Current Symptoms Are (Timing): Still Present Associated Symptoms: denies: Fever, Chills Additional History Per: Patient Past Medical History Reviewed: Historical Data, Nursing Documentation, Vital Signs Vital Signs: Last Vital Signs Temp 97.8 F 04/27/17 10:45 Pulse 90 04/27/17 10:45 Resp 18 04/27/17 10:45 BP 116/77 04/27/17 10:45 Pulse Ox 99 04/27/17 11:26 - Medical History PMH: HTN (Preeclampsia) Surgical History: Family History: States: Unknown Family Hx - Social History Hx Tobacco Use: No Hx Alcohol Use: No Hx Substance Use: No - Immunization History Hx Tetanus Toxoid Vaccination: No Hx Influenza Vaccination: Yes Hx Pneumococcal Vaccination: No Review Of Systems Constitutional: Negative for: Fever, Chills Respiratory: Positive for: Cough Physical Exam - Physical Exam Appears: Non-toxic, No Acute Distress Skin: Normal Color, Warm, Dry Head: Atraumatic, Normacephalic Eye(s): bilateral: Normal Inspection Ear(s): Bilateral: Normal Nose: Normal, No Discharge Oral Mucosa: Moist Throat: Normal, No Erythema, No Exudate Neck: Normal ROM, Supple Chest: Symmetrical, No Deformity, No Tenderness Cardiovascular: Rhythm Regular, No Murmur Respiratory: Normal Breath Sounds, No Rales, No Rhonchi, No Wheezing Extremity: Normal ROM, Capillary Refill (less than 2 seconds ) Neurological/Psych: Oriented x3, Normal Speech, Normal Cognition Gait: Steady ED Course And Treatment O2 Sat by Pulse Oximetry: 99 (on RA) Pulse Ox Interpretation: Normal - Physician Consult Information Time Consulting Physician Contacted: 11:19 Physician Contacted: Rashid Rodriguez Outcome Of Conversation: advises liz JEREZ, abx fu output Disposition Counseled Patient/Family Regarding: Diagnosis, Need For Followup, Rx Given - Disposition Referrals: your,pmd [Other] Disposition: HOME/ ROUTINE Disposition Time: 11:19 Condition: GOOD Prescriptions: Azithromycin 250 mg PO DAILY #6 tab guaiFENesin/Dextromethorphan [Q-Tussin Dm 10 MG/5 Ml-100 MG/5 Ml 120 Ml] 20 ml PO Q4 PRN #1 bot PRN Reason: Cough Instructions: Acute Bronchitis (ED) Forms: Gen Discharge Inst Lao, Work Excuse Print Language: KISWAHILI - Clinical Impression Clinical Impression: Bronchitis, - Scribe Statement The provider has reviewed the documentation as recorded by the Scribe (Patience Traore) Provider Attestation: All medical record entries made by the Scribe were at my direction and personally dictated by me. I have reviewed the chart and agree that the record accurately reflects my personal performance of the history, physical exam, medical decision making, and the department course for this patient. I have also personally directed, reviewed, and agree with the discharge instructions and disposition.
== END 2017-04-27 11:33 | disposition home or self-care (01) ==
LOC: C.ER 10:42
DX: O26.899 Other specified pregnancy related conditions, unspecified trimester (principal); J40 Bronchitis, not specified as acute or chronic

== ENCOUNTER 2017-06-01 10:07 | Emergency (ER) | payer MEDICAID ==
[2017-06-01 10:24] VITALS: BMI 32.1
--- NOTE | 2017-06-01 10:29 | OBHP ---
Datetime: 06/01/2017 10:25 IP Adm Impression: , intrauterine Admit Comment, IP Provider: at 24+weks came with c/o back pain and cramping started from 3 days . pt fll on her back on thursday and never went to hospital,no vb, no lof,+fm obhx 2 x c/s pmgh de med pnv all nkda psh c/s x 2 soch den ve closed a/p at 24+weeks back pain r/o uti ua cont kary and efm cont close observation Pelvic Type - PN: Adequate Extremities - PN: Normal Abdomen - PN: Normal Back - PN: Normal Breast - PN: Not Done Lungs - PN: Normal Heart - PN: Normal Thyroid - PN: Not Done Neurologic - PN: Normal HEENT - PN: Normal General - PN: Normal FHR - Baseline A Provider: 140 Contraction Comments Provider: none Comments, ACOG Physical Exam: gravid,non tender ext no edema,no calf ten ve closed/th/-3 EGA AdmitDate IP: 24.6 IP Chief Complaint: Maternal discomfort NICHD Variability Prov Fetus A: Moderate 6-25bpm NICHD Accel Fetus A IP Provider: 10X10 FHR Category Provider Fetus A: Category I Dilatation, Provider: 0 Effacement, Provider: 0 Station, Provider: -4 Genitourinary Exam: Normal DTRs - PN: Normal
[2017-06-01 10:39] LABS: RBC URINE 12 /hpf (0-3); URINE BACTERIA RARE (<OCC); URINE BILIRUBIN NEGATIVE (NEGATIVE); URINE BLOOD 1+ (NEGATIVE); URINE COLOR Yellow (YELLOW); URINE GLUCOSE (UA) NORMAL (Normal); URINE KETONE NEGATIVE (NEGATIVE); URINE LEUKOCYTE ESTERASE NEG Leu/uL (Negative); URINE PROTEIN 1+ mg/dL (NEGATIVE); URINE UROBILINOGEN NORMAL mg/dL (0.2-1.0); WBC URINE 1 /hpf (0-5)
--- NOTE | 2017-06-01 11:00 | OBDCSUM ---
Datetime: 06/01/2017 10:58 Discharged to, Provider: Home Follow up at, Provider: 2-3 Follow up in weeks, Provider: clinic Disch Activity Restrictions: Nothing in vagina - [place], tampons, douche Discharge Comment, Provider: anastasia dumont dc home no sex po hyra f/u in clinic in 2-3 days Discharge Diagnosis Prov Other: 24week nst
--- NOTE | 2017-06-01 11:00 | OBHP ---
Datetime: 06/01/2017 10:25 Admit Comment, IP Provider: at 24+weks came with c/o back pain and cramping started from 3 days . pt fll on her back on thursday and never went to hospital,no vb, no lof,+fm obhx 2 x c/s pmgh de med pnv all nkda psh c/s x 2 soch den ve closed a/p at 24+weeks back pain r/o uti ua cont kary and efm cont close observation ua neg pt fels good dc home no sex po hyra f/u in clinic in 2-3 days EGA AdmitDate IP: 24.6
[2017-06-01 15:18] VITALS: BP 110/64; PULSE 92; O2SAT 99
== END 2017-06-01 11:15 | disposition home or self-care (01) ==
LOC: C.EROB 10:07
DX: O26.892 Other specified pregnancy related conditions, second trimester (principal); M54.9 Dorsalgia, unspecified; Z3A.24 24 weeks gestation of pregnancy

== ENCOUNTER 2017-08-05 17:21 | Emergency (ER) | payer MEDICAID ==
[2017-08-05 17:35] VITALS: BMI 34.5
--- NOTE | 2017-08-05 17:43 | OBHP ---
Datetime: 08/05/2017 17:41 IP Adm Impression: , intrauterine Admit Comment, IP Provider: at 34+weks came with c/o pain in the abdomen and bacxk from morning , no vb, lof+fm, no dysuria obhx 2 xc/s p,mh den med pnv all naproxern psh c/s soch de ve closed a/p at 34+weeks pain npo/ivf ua cont kary and efm cont close obser Pelvic Type - PN: Adequate Extremities - PN: Normal Abdomen - PN: Normal Back - PN: Normal Breast - PN: Normal Lungs - PN: Normal Heart - PN: Normal Thyroid - PN: Normal Neurologic - PN: Normal HEENT - PN: Normal General - PN: Normal FHR - Baseline A Provider: 130 Contraction Comments Provider: none EGA AdmitDate IP: 33.1 Vital Signs Provider: Reviewed; Within Normal Limits IP Chief Complaint: Maternal discomfort NICHD Variability Prov Fetus A: Moderate 6-25bpm NICHD Accel Fetus A IP Provider: 15X15 FHR Category Provider Fetus A: Category I Dilatation, Provider: 0 Effacement, Provider: 0 Station, Provider: -3 Genitourinary Exam: Normal DTRs - PN: Normal
[2017-08-05] MEDS ORDERED: Lactated Ringer's 1,000 ML IV SCH (17:45)
[2017-08-05 19:12] LABS: SQUAMOUS EPITHIAL 9 /hpf (0-5); URINE BACTERIA RARE (<OCC)
[2017-08-05 19:16] LABS: URINE BILIRUBIN NEGATIVE (NEGATIVE); URINE BLOOD NEGATIVE (NEGATIVE); URINE CLARITY CLEAR (Clear); URINE COLOR YELLOW (YELLOW); URINE GLUCOSE (UA) NEGATIVE (Normal); URINE LEUKOCYTE ESTERASE NEGATIVE Leu/uL (Negative); URINE NITRATE NEGATIVE (NEGATIVE); URINE PROTEIN TRACE mg/dL (NEGATIVE); URINE UROBILINOGEN 0.2 mg/dL (0.2-1.0)
--- NOTE | 2017-08-05 19:36 | OBHP ---
Datetime: 08/05/2017 19:33 Admit Comment, IP Provider: pt was seen at bed side, no ctxs,vb, lof+fm ve closed x2 ua neg plan dc home ptl given po hyration no sex f/u in 2-3days FHR - Baseline A Provider: 130 Contraction Comments Provider: none Comments, ACOG Physical Exam: gravid,non tender ext no edema,no calf ten Vital Signs Provider: Reviewed; Within Normal Limits NICHD Variability Prov Fetus A: Moderate 6-25bpm NICHD Accel Fetus A IP Provider: 15X15 FHR Category Provider Fetus A: Category I Dilatation, Provider: 0 Effacement, Provider: 0 Station, Provider: -3 Datetime: 08/05/2017 17:41 EGA AdmitDate IP: 33.1
--- NOTE | 2017-08-05 19:38 | OBDCSUM ---
Datetime: 08/05/2017 19:33 Discharged to, Provider: Home Follow up at, Provider: CLINIC, [facility] Follow up at, Provider: thursday Disch Instr Activity: Bedrest Disch Instr Diet: Regular Discharge Diet restrict Prov: NO SEXUAL INTERCOURSE Discharge Time: 08/05/2017 19:35 Follow up in weeks, Provider: clinic Disch Referrals: None Disch Activity Restrictions: No sexual activity; Nothing in vagina - [place], tampons, douche Discharge Comment, Provider: bed rest 08/07/17 ptl given po hyration no sex f/u in 2-3days Discharge Diagnosis Prov Other: 33week ctxs nst
[2017-08-06 00:03] VITALS: BP 128/73; PULSE 99; TEMP 97.5
== END 2017-08-05 20:03 | disposition home or self-care (01) ==
LOC: C.EROB 17:21
DX: O26.893 Other specified pregnancy related conditions, third trimester (principal); Z3A.34 34 weeks gestation of pregnancy; R10.9 Unspecified abdominal pain
CPT/HCPCS: 81001; 96372; 99283; J3105; J7120

== ENCOUNTER 2018-09-20 09:14 | Emergency (ER) | payer MEDICAID ==
[2018-09-20 09:26] VITALS: BMI 31.5
[2018-09-20 09:29] VITALS: O2SAT 100
--- NOTE | 2018-09-20 09:55 | C.PDOC ---
History Of Present Illness 33 year old female presents to ED with complaint of right sided pelvic pain for the past week. Patient describes the pain as intermittent and similar to the pain she experienced when she had her . She states that the pain radiates from the right pelvis down her right thigh. She states that the pain is sometimes worse with bending and walking. Patient has a PMHx of tubal ligation and recently had a normal colonoscopy. Patient reports that her last bowel movement was today and that she has a fever of 102 yesterday. Patient denies anorexia, vomiting, diarrhea, cough, dysuria, hematuria, frequency, and vaginal discharge. Chief Complaint (Nursing): Female Genitourinary History Per: Patient History/Exam Limitations: no limitations Onset/Duration Of Symptoms: Days (7), Intermittent Episodes Current Symptoms Are (Timing): Still Present Location Of Pain/Discomfort: Other (right side of the pelvis) Radiation Of Pain To:: Leg (right thigh) Quality Of Discomfort: "Pain" Associated Symptoms: Fever. denies: Chills, Vomiting, Diarrhea, Urinary Symptoms Exacerbating Factors: Walking, Other (Bending) Alleviating Factors: None Last Bowel Movement: Today Abnormal Vaginal Bleeding: No Past Medical History Reviewed: Historical Data, Nursing Documentation, Vital Signs Vital Signs: Last Vital Signs Temp 98.5 F 09/20/18 09:27 Pulse 78 09/20/18 09:27 Resp 20 09/20/18 09:27 BP 120/65 09/20/18 09:27 Pulse Ox 100 09/20/18 09:27 - Medical History PMH: HTN (Preeclampsia) Surgical History: Other Surgeries: Tubal ligation Family History: States: Unknown Family Hx - Social History Hx Tobacco Use: No Hx Alcohol Use: No Hx Substance Use: No - Immunization History Hx Tetanus Toxoid Vaccination: No Hx Influenza Vaccination: Yes Hx Pneumococcal Vaccination: No Review Of Systems Constitutional: Positive for: Fever. Negative for: Chills, Weakness Gastrointestinal: Negative for: Vomiting, Diarrhea Genitourinary: Positive for: Pelvic Pain (right-sided). Negative for: Dysuria, Frequency, Hematuria, Vaginal Discharge, Vaginal Bleeding Musculoskeletal: Positive for: Leg Pain (right thigh) Neurological: Negative for: Weakness, Numbness, Dizziness Physical Exam - Physical Exam Appears: Well, Non-toxic, No Acute Distress Skin: Normal Color, Warm, Dry Head: Atraumatic, Normacephalic Oral Mucosa: Moist Neck: Normal ROM, Supple Chest: Symmetrical, No Deformity Cardiovascular: Rhythm Regular, No Murmur Respiratory: No Accessory Muscle Use, No Rales, No Rhonchi, No Wheezing Gastrointestinal/Abdominal: Bowel Sounds, Soft, No Tenderness Back: CVA Tenderness Pelvic: Other (right sided tenderness) Extremity: Capillary Refill (<2 seconds) Extremity: Bilateral: Atraumatic, Normal Color And Temperature, Normal ROM Pulses: Left Dorsalis Pedis: Normal, Right Dorsalis Pedis: Normal Neurological/Psych: Oriented x3, Normal Speech, Normal Cognition ED Course And Treatment O2 Sat by Pulse Oximetry: 100 (in RA) - CT Scan/US Pelvic/Transvaginal US Other Rad Studies (CT/US): Interpreted By Me, Read By Radiologist CT/US Interpretation: Accession No. : [id number]. Patient Name / ID : RENEE ALMEIDA / [id number]. Exam Date : 09/20/2018 12:00:01 ( Approved ). Study Comment : Sex / Age : F / 33Y. Creator : Mariely Dickerson. Dictator : Katarina Blankenship MD. Faculty Criminal Justice : Communications Media Professor : Katarina Blankenship MD. Approver2 : Report Date : 09/20/2018 12:18:28. My Comment : . Date of service: 09/20/2018. HISTORY: Pain. COMPARISON: Transvaginal pelvic ultrasound performed 09/12/16. TECHNIQUE: Real-time transabdominal pelvic ultrasound was performed. In addition a transvaginal pelvic ultrasound was necessary to better depict pelvic anatomy. FINDINGS: UTERUS: Measures 8.3 x 4.5 x 6.9 cm. Retroverted. ENDOMETRIUM: Measures 1.0 cm in diameter. Small fluid is noted within the endometrial cavity. CERVIX: No cervical abnormality identified. RIGHT OVARY: Measures 3.0 x 1.5 x 3.0 cm. Blood flow is demonstrated. LEFT OVARY: Measures 2.6 x 2.0 x 3.7 cm. Blood flow is demonstrated. FREE FLUID: No significant free fluid noted. OTHER FINDINGS: None. IMPRESSION: Small fluid in the endometrial cavity. Otherwise unremarkable study as above. Medical Decision Making Medical Decision Making: Impression: 33 year old female presents to ED with complaint of right sided pelvic pain for the past week Plan: UA U-preg Urine culture Pelvic/Transvaginal US U-preg: negative UA: normal US: pending Spoke with patient regarding US results. Patient instructed to f/u with PMD. Disposition Counseled Patient/Family Regarding: Studies Performed, Diagnosis, Need For Followup - Disposition Referrals: Ananda Street MD [Medical Doctor] - Disposition: HOME/ ROUTINE Disposition Time: 12:55 Condition: STABLE Additional Instructions: JUAN PABLO DURAN, thank you for letting us take care of you today. Your provider was Iman Kerns MD and you were treated for FEVER/PELVIC PAIN. The emergency medical care you received today was directed at your acute symptoms. If you were prescribed any medication, please fill it and take as directed. It may take several days for your symptoms to resolve. Return to the Emergency Department if your symptoms worsen, do not improve, or if you have any other problems. Please contact your doctor in 1-2 days for a follow up appointment. Bring any paperwork you were given at discharge with you along with any medications you are taking to your follow up visit. Our treatment cannot replace ongoing medical care by a primary care provider outside of the emergency department. Thank you for allowing the [facility] team to be part of your care today. If you had an X-Ray or CT scan: A Radiologist will review the ED reading if any change in treatment is needed we will contact you. If you had a blood, urine, or wound culture: It will take several days for the results, if any change in treatment is needed we will contact you. If you had an STI test: It will take 48 hours for the results. Please call after 1 week if you have not heard back. Instructions: Acute Abdomen (Belly Pain), Adult (DC), Acute Pelvic Pain (DC) Forms: General Discharge Instructions, Work/School/Gym Excuse, [employer] (Mauritian) - POA Present On Arrival: None - Clinical Impression Clinical Impression: Pelvic pain, Abdominal pain - Scribe Statement The provider has reviewed the documentation as recorded by the Scribe (Sabrina Moe) All medical record entries made by the Scribe were at my direction and personally dictated by me. I have reviewed the chart and agree that the record accurately reflects my personal performance of the history, physical exam, m edical decision making, and the department course for this patient. I have also personally directed, reviewed, and agree with the discharge instructions and disposition.
[2018-09-20 10:29] LABS: SQUAMOUS EPITHIAL 2 /hpf (0-5); URINE BILIRUBIN NEGATIVE (NEGATIVE); URINE BLOOD NEGATIVE (NEGATIVE); URINE CLARITY Clear (Clear); URINE COLOR Yellow (YELLOW); URINE GLUCOSE (UA) NORMAL (Normal); URINE LEUKOCYTE ESTERASE NEG Leu/uL (Negative); URINE PROTEIN NEGATIVE (NEGATIVE); URINE UROBILINOGEN NORMAL mg/dL (0.2-1.0)
--- NOTE | 2018-09-20 12:31 | US ---
Date of service: 09/20/2018 HISTORY: Pain COMPARISON: Transvaginal pelvic ultrasound performed 09/12/16 TECHNIQUE: Real-time transabdominal pelvic ultrasound was performed. In addition a transvaginal pelvic ultrasound was necessary to better depict pelvic anatomy. FINDINGS: UTERUS: Measures 8.3 x 4.5 x 6.9 cm. Retroverted. ENDOMETRIUM: Measures 1.0 cm in diameter. Small fluid is noted within the endometrial cavity. CERVIX: No cervical abnormality identified. RIGHT OVARY: Measures 3.0 x 1.5 x 3.0 cm. Blood flow is demonstrated. LEFT OVARY: Measures 2.6 x 2.0 x 3.7 cm. Blood flow is demonstrated. FREE FLUID: No significant free fluid noted. OTHER FINDINGS: None. IMPRESSION: Small fluid in the endometrial cavity. Otherwise unremarkable study as above.
[2018-09-20 13:07] VITALS: BP 116/77; PULSE 68; RESP 18; TEMP 98.2
== END 2018-09-20 13:07 | disposition home or self-care (01) ==
LOC: C.ER 09:14
DX: R10.2 Pelvic and perineal pain (principal); R10.9 Unspecified abdominal pain